=== PATIENT | male | born 1975 | race Caucasian/White ===

== ENCOUNTER 2017-12-05 20:01 | Emergency (ER) | payer MEDICAID ==
[2017-12-05] MEDS ORDERED: SODIUM CHLORIDE 0.9% 1,000 ML IV STA (20:23)
[2017-12-05] MEDS ORDERED: METOCLOPRAMIDE 5 MG/ML 2 ML VIAL IVP STA (20:23)
[2017-12-05] MEDS ORDERED: diphenhydrAMINE 50 MG/ML 1 ML VIAL IVP STA (20:23)
--- NOTE | 2017-12-05 20:26 | ED ---
General Adult HPI - General Chief complaint: GI Bleed Stated complaint: vomiting/blood Time Seen by Provider: 12/05/17 20:13 Source: patient, RN notes reviewed Mode of arrival: ambulatory Limitations: no limitations - History of Present Illness Initial comments: Patient's a 42-year-old male who presents emergency room today with a chief of nausea vomiting over the last 3 days. Patient does admit that he's had cough congestion for the past 10 days. States that he saw his family doctor was diagnosed with pneumonia and started antibiotics of azithromycin. He states he' s also been given no medications of Zofran. He states been trying this for the last day for his nausea vomiting. Patient states that tonight approximately an hour and a half ago he had an episode of vomiting saw small amount of blood in it. He does admit that he's been retching pretty hard over the last few days. He states he doesn't feel nauseous but it seems that every hour or so he has an episode of vomiting. Patient denies any specific abdominal pain. He does admit that he still having a mild cough but seems to be improving. He denies any other complaints or symptoms currently. Patient denies any recent fever, chills, shortness of breath, chest pain, back pain, numbness or tingling, dysuria or hematuria, constipation or diarrhea, headaches or visual changes, or any other complaints. - Related Data Home Medications Medication Instructions Recorded Confirmed Azithromycin [Zithromax Z-pack] See Taper PO DAILY 12/05/17 12/05/17 Ondansetron [Zofran ODT] 4 mg PO Q8HR PRN 12/05/17 12/05/17 Previous Rx's Medication Instructions Recorded Metoclopramide HCl [Reglan] 10 mg PO Q6HR PRN #5 day 12/05/17 Allergies Allergy/AdvReac Type Severity Reaction Status Date / Time No Known Allergies Allergy Verified 12/05/17 21:03 Review of Systems ROS Statement: Those systems with pertinent positive or pertinent negative responses have been documented in the HPI. ROS Other: All systems not noted in ROS Statement are negative. Past Medical History Past Medical History: No Reported History History of Any Multi-Drug Resistant Organisms: None Reported Past Surgical History: Hernia Repair, Orthopedic Surgery Additional Past Surgical History / Comment(s): left knee, right shoulder Past Psychological History: No Psychological Hx Reported Smoking Status: Never smoker Past Alcohol Use History: Occasional Past Drug Use History: None Reported General Exam - General Exam Comments Initial Comments: General: The patient is awake and alert, in no distress, and does not appear acutely ill. Eye: Pupils are equal, round and reactive to light, extra-ocular movements are intact. No nystagmus. There is normal conjunctiva bilaterally. No signs of icterus. Ears, nose, mouth and throat: There are moist mucous membranes and no oral lesions. Neck: The neck is supple, there is no tenderness or JVD. Cardiovascular: There is a regular rate and rhythm. No murmur, rub or gallop is appreciated. Respiratory: Lungs are clear to auscultation, respirations are non-labored, breath sounds are equal. No wheezes, stridor, rales, or rhonchi. Gastrointestinal: Soft, non-distended, non-tender abdomen without masses or organomegaly noted. There is no rebound or guarding present. No CVA tenderness. Bowel sounds are unremarkable. Musculoskeletal: Normal ROM, no tenderness. Strength 5/5. Sensation intact. Pulses equal bilaterally 2+. Neurological: A&O x 3. CN II-XII intact, There are no obvious motor or sensory deficits. Coordination appears grossly intact. Speech is normal. Skin: Skin is warm and dry and no rashes or lesions are noted. Psychiatric: Cooperative, appropriate mood & affect, normal judgment. Limitations: no limitations Course Vital Signs 12/05/17 20:05 Temperature 99 F Pulse Rate 106 H Respiratory 20 Rate Blood Pressure 124/78 O2 Sat by Pulse 97 Oximetry Medical Decision Making - Medical Decision Making Patient reexamined at this time shows no signs of distress. Patient's chest x- rays negative. His labs been reviewed unremarkable. Patient given a bolus here in the emergency room and is feeling much better at this time after Reglan. Patient will be given Reglan to go home for his symptoms. Is advised to follow-up the family doctor return here to the emergency room symptoms increase worsen or for concerns. - Lab Data Result diagrams: 12/05/17 20:45 12/05/17 20:45 Lab Results 12/05/17 12/05/17 12/05/17 Range/Units 20:45 20:45 20:45 WBC 9.2 (3.8-10.6) k/uL RBC 5.62 (4.30-5.90) m/uL Hgb 16.9 (13.0-17.5) gm/dL Hct 50.2 (39.0-53.0) % MCV 89.3 (80.0-100.0) fL MCH 30.0 (25.0-35.0) pg MCHC 33.6 (31.0-37.0) g/dL RDW 12.3 (11.5-15.5) % Plt Count 270 (150-450) k/uL Neutrophils % 70 % Lymphocytes % 20 % Monocytes % 7 % Eosinophils % 2 % Basophils % 1 % Neutrophils # 6.4 (1.3-7.7) k/uL Lymphocytes # 1.8 (1.0-4.8) k/uL Monocytes # 0.6 (0-1.0) k/uL Eosinophils # 0.2 (0-0.7) k/uL Basophils # 0.1 (0-0.2) k/uL PT 10.8 (9.0-12.0) sec INR 1.1 (<1.2) APTT 20.4 L (22.0-30.0) sec Sodium 140 (137-145) mmol/L Potassium 4.5 (3.5-5.1) mmol/L Chloride 101 (98-107) mmol/L Carbon Dioxide 24 (22-30) mmol/L Anion Gap 15 mmol/L BUN 32 H (9-20) mg/dL Creatinine 1.03 (0.66-1.25) mg/dL Est GFR (MDRD) Af Amer >60 (>60 ml/min/1.73 sqM) Est GFR (MDRD) Non-Af >60 (>60 ml/min/1.73 sqM) Glucose 106 H (74-99) mg/dL Calcium 9.3 (8.4-10.2) mg/dL Total Bilirubin 0.7 (0.2-1.3) mg/dL AST 31 (17-59) U/L ALT 36 (21-72) U/L Alkaline Phosphatase 78 (38-126) U/L Total Protein 7.4 (6.3-8.2) g/dL Albumin 4.5 (3.5-5.0) g/dL Amylase 97 (30-110) U/L Lipase 96 (23-300) U/L Disposition Clinical Impression: Nausea & vomiting, URI (upper respiratory infection) Disposition: HOME SELF-CARE Condition: Good Instructions: Acute Nausea and Vomiting (ED) Additional Instructions: Please use medication as discussed. Please follow-up with family doctor in the next 2 days of symptoms have not improved. Please return to emergency room if the symptoms increase or worsen or for any other concerns. Prescriptions: Metoclopramide HCl [Reglan] 10 mg PO Q6HR PRN #5 day PRN Reason: Nausea Referrals: Henry Desir DO [Primary Care Provider] - 1-2 days Time of Disposition: 21:42
[2017-12-05 21:04] LABS: Basophils # (A) 0.1 k/uL (0-0.2); Basophils % (A) 1 %; Eosinophils # (A) 0.2 k/uL (0-0.7); Eosinophils % (A) 2 %; HCT 50.2 % (39.0-53.0); HGB 16.9 gm/dL (13.0-17.5); Lymphocytes # (A) 1.8 k/uL (1.0-4.8); Lymphocytes % (A) 20 %; MCHC 33.6 g/dL (31.0-37.0); MCV 89.3 fL (80.0-100.0); Mean Platelet Volume 6.9; Monocytes # (A) 0.6 k/uL (0-1.0); Monocytes % (A) 7 %; Neutrophils # (A) 6.4 k/uL (1.3-7.7); Neutrophils % (A) 70 %; Platelet Count 270 k/uL (150-450); RBC 5.62 m/uL (4.30-5.90); RDW 12.3 % (11.5-15.5); WBC 9.2 k/uL (3.8-10.6)
[2017-12-05 21:13] LABS: INR 1.1 (<1.2); Prothrombin Time 10.8 sec (9.0-12.0)
[2017-12-05 21:14] LABS: ALT 36 U/L (21-72); AST 31 U/L (17-59); Albumin 4.5 g/dL (3.5-5.0); Alkaline Phosphatase 78 U/L (38-126); Amylase 97 U/L (30-110); Anion Gap 15 mmol/L; Blood Urea Nitrogen 32 mg/dL (9-20); Calcium 9.3 mg/dL (8.4-10.2); Carbon Dioxide 24 mmol/L (22-30); Chloride 101 mmol/L (98-107); Glucose 106 mg/dL (74-99); Lipase 96 U/L (23-300); Potassium 4.5 mmol/L (3.5-5.1); Sodium 140 mmol/L (137-145); Total Bilirubin 0.7 mg/dL (0.2-1.3); Total Protein 7.4 g/dL (6.3-8.2)
[2017-12-05 21:26] LABS: Partial Thromboplastin Time 20.4 sec (22.0-30.0)
--- NOTE | 2017-12-05 21:32 | XR ---
EXAMINATION: XR chest 2V DATE AND TIME: 12/05/2017 9:26 PM ORDERING PROVIDER: Elmer Mclain CLINICAL INDICATION: cough TECHNIQUE: PA and lateral COMPARISON: None. DESCRIPTION: The lungs are clear. The pleural spaces are negative. The cardiac silhouette is not enlarged. The mediastinal and pleural silhouettes are unremarkable. The skeletal structures are intact without focal findings. The soft tissues are unremarkable. IMPRESSION: NO ACUTE PROCESS.
[2017-12-05 22:14] VITALS: BP 134/86; PULSE 79; RESP 18; TEMP 98.1
[2017-12-05] MEDS ORDERED: ONDANSETRON 4 MG/2 ML VIAL IM STA (22:25)
== END 2017-12-05 23:02 | disposition home or self-care (01) ==
LOC: EC 20:01
DX: R11.2 Nausea with vomiting, unspecified (principal); R06.9 Unspecified abnormalities of breathing
CPT/HCPCS: 36415; 80053; 82150; 83690; 85025; 85610; 85730; 71046; 99284; 96374; 96375; 96361; J1200; J2765; J2405

== ENCOUNTER 2017-12-09 21:13 | Inpatient (IN) | payer MEDICAID ==
[2017-12-09] MEDS ORDERED: SODIUM CHLORIDE 0.9% 1,000 ML IV STA (21:33)
[2017-12-09] MEDS ORDERED: ONDANSETRON 4 MG/2 ML VIAL IVP STA (21:33)
--- NOTE | 2017-12-09 21:37 | ED ---
General Adult HPI - General Chief complaint: Abdominal Pain Stated complaint: abdominal pain/vomiting-revisit Time Seen by Provider: 12/09/17 21:20 Source: patient, RN notes reviewed, old records reviewed Mode of arrival: ambulatory Limitations: no limitations - History of Present Illness Initial comments: 42-year-old male with no significant past medical history presents for evaluation of epigastric abdominal pain and nausea and vomiting. Patient's symptoms began on Sunday, he had burning sensation in his stomach, followed by vomiting. He has been vomiting for the past 6 days. He did have an episode of blood-tinged vomit prior to ER evaluation on Sunday. Chest x-ray and laboratory studies were unremarkable at that time. Patient did have some URI symptoms including some nasal congestion and cough. He was given Rocephin and azithromycin by his primary care physician. Symptoms have failed to improve. He has no known sick contacts. Vomiting has been persistent now for 6 days. Denies central chest pain. Denies diarrhea. Patient did have fever and chills earlier in the week. - Related Data Home Medications Medication Instructions Recorded Confirmed Azithromycin [Zithromax Z-pack] 0 mg PO DIRECTED 12/09/17 12/09/17 Cetirizine HCl [Zyrtec] 10 mg PO DAILY 12/09/17 12/09/17 Famotidine [Pepcid] 20 mg PO BID 12/09/17 12/09/17 Metoclopramide [Reglan] 10 mg PO Q6H PRN 12/09/17 12/09/17 Allergies Allergy/AdvReac Type Severity Reaction Status Date / Time No Known Allergies Allergy Verified 12/09/17 21:41 Review of Systems ROS Statement: Those systems with pertinent positive or pertinent negative responses have been documented in the HPI. ROS Other: All systems not noted in ROS Statement are negative. Past Medical History Past Medical History: No Reported History History of Any Multi-Drug Resistant Organisms: None Reported Past Surgical History: Hernia Repair, Orthopedic Surgery Additional Past Surgical History / Comment(s): left knee, right shoulder Past Psychological History: No Psychological Hx Reported Smoking Status: Never smoker Past Alcohol Use History: Occasional Past Drug Use History: None Reported General Exam Limitations: no limitations General appearance: alert, in no apparent distress Head exam: Present: atraumatic, normocephalic Eye exam: Present: normal appearance, PERRL ENT exam: Present: normal exam Neck exam: Present: normal inspection. Absent: tenderness, meningismus Respiratory exam: Present: normal lung sounds bilaterally, other ( Bronchospastic cough). Absent: respiratory distress Cardiovascular Exam: Present: regular rate, normal rhythm GI/Abdominal exam: Present: soft, tenderness (Epigastric tenderness to palpation ). Absent: distended, guarding, rebound Extremities exam: Present: normal inspection, normal capillary refill. Absent: pedal edema Back exam: Present: normal inspection. Absent: full ROM Neurological exam: Present: alert, oriented X3, CN II-XII intact. Absent: motor sensory deficit Psychiatric exam: Present: normal affect, normal mood Skin exam: Present: warm, dry, intact. Absent: cyanosis, diaphoretic Course Vital Signs 12/09/17 12/09/17 12/09/17 21:21 22:01 22:27 Temperature 98.6 F Pulse Rate 98 80 Respiratory 20 18 18 Rate Blood Pressure 134/81 126/79 O2 Sat by Pulse 95 100 Oximetry 12/09/17 23:10 Temperature Pulse Rate 84 Respiratory 17 Rate Blood Pressure 127/80 O2 Sat by Pulse 97 Oximetry Medical Decision Making - Medical Decision Making 42-year-old male presenting with nausea and vomiting. This is patient's second ER visit for same complaint. His symptoms have been ongoing for 6 days. Patient does have some mild epigastric tenderness. He appears dehydrated on physical exam. Laboratory studies are obtained, white blood cell count 13.8 which is elevated, hemoglobin 17.8 which is likely secondary to hemoconcentration. Sodium is 129, creatinine 1.1, lactic acid normal 0.9 albumin 2.8 from previous of 4.5 3 days ago. X-ray is obtained, negative for bowel obstruction or intraperitoneal free air. Chest x-ray shows no focal pneumonia. Ultrasound is obtained, shows no gallstones, common bile duct is 0.4 cm, gallbladder wall 2 mm. This is normal ultrasound. On reevaluation, patient still having persistent nausea. He has been unable to eat anything significant in the past 6 days. He will be admitted for IV hydration, left shoulder replacement, and GI evaluation for persistent nausea and vomiting. - Lab Data Result diagrams: 12/09/17 21:40 12/09/17 21:40 Lab Results 01/14/18 01/14/18 01/14/18 Range/Units 21:40 21:40 21:40 WBC 13.8 H (3.8-10.6) k/uL RBC 6.14 H (4.30-5.90) m/uL Hgb 17.8 H (13.0-17.5) gm/dL Hct 55.8 H (39.0-53.0) % MCV 90.8 (80.0-100.0) fL MCH 29.1 (25.0-35.0) pg MCHC 32.0 (31.0-37.0) g/dL RDW 14.4 (11.5-15.5) % Plt Count 285 (150-450) k/uL Neutrophils % 60 % Lymphocytes % 25 % Monocytes % 8 % Eosinophils % 4 % Basophils % 1 % Neutrophils # 8.3 H (1.3-7.7) k/uL Lymphocytes # 3.4 (1.0-4.8) k/uL Monocytes # 1.1 H (0-1.0) k/uL Eosinophils # 0.6 (0-0.7) k/uL Basophils # 0.2 (0-0.2) k/uL Sodium 129 L (137-145) mmol/L Potassium 3.7 (3.5-5.1) mmol/L Chloride 96 L (98-107) mmol/L Carbon Dioxide 26 (22-30) mmol/L Anion Gap 7 mmol/L BUN 25 H (9-20) mg/dL Creatinine 1.10 (0.66-1.25) mg/dL Est GFR (MDRD) Af Amer >60 (>60 ml/min/1.73 sqM) Est GFR (MDRD) Non-Af >60 (>60 ml/min/1.73 sqM) Glucose 114 H (74-99) mg/dL Plasma Lactic Acid Daniel 0.9 (0.7-2.0) mmol/L Calcium 8.3 L (8.4-10.2) mg/dL Total Bilirubin 0.7 (0.2-1.3) mg/dL AST 22 (17-59) U/L ALT 35 (21-72) U/L Alkaline Phosphatase 37 L (38-126) U/L Troponin I (0.000-0.034) ng/mL Total Protein 4.8 L (6.3-8.2) g/dL Albumin 2.8 L (3.5-5.0) g/dL Amylase 56 (30-110) U/L Lipase 223 (23-300) U/L Influenza Type A RNA (Not Detectd) Influenza Type B (PCR) (Not Detectd) 12/09/17 12/09/17 Range/Units 21:40 22:10 WBC (3.8-10.6) k/uL RBC (4.30-5.90) m/uL Hgb (13.0-17.5) gm/dL Hct (39.0-53.0) % MCV (80.0-100.0) fL MCH (25.0-35.0) pg MCHC (31.0-37.0) g/dL RDW (11.5-15.5) % Plt Count (150-450) k/uL Neutrophils % % Lymphocytes % % Monocytes % % Eosinophils % % Basophils % % Neutrophils # (1.3-7.7) k/uL Lymphocytes # (1.0-4.8) k/uL Monocytes # (0-1.0) k/uL Eosinophils # (0-0.7) k/uL Basophils # (0-0.2) k/uL Sodium (137-145) mmol/L Potassium (3.5-5.1) mmol/L Chloride (98-107) mmol/L Carbon Dioxide (22-30) mmol/L Anion Gap mmol/L BUN (9-20) mg/dL Creatinine (0.66-1.25) mg/dL Est GFR (MDRD) Af Amer (>60 ml/min/1.73 sqM) Est GFR (MDRD) Non-Af (>60 ml/min/1.73 sqM) Glucose (74-99) mg/dL Plasma Lactic Acid Daniel (0.7-2.0) mmol/L Calcium (8.4-10.2) mg/dL Total Bilirubin (0.2-1.3) mg/dL AST (17-59) U/L ALT (21-72) U/L Alkaline Phosphatase (38-126) U/L Troponin I <0.012 (0.000-0.034) ng/mL Total Protein (6.3-8.2) g/dL Albumin (3.5-5.0) g/dL Amylase (30-110) U/L Lipase (23-300) U/L Influenza Type A RNA Not Detected (Not Detectd) Influenza Type B (PCR) Not Detected (Not Detectd) Disposition Clinical Impression: Intractable nausea and vomiting, Hyponatremia Disposition: ADMITTED IP TO THIS [facility] Condition: Stable Referrals: Henry Desir DO [Primary Care Provider] - 1-2 days Decision to Admit Reason: Admit from EC Decision Date: 12/09/17 Decision Time: 23:16
[2017-12-09 21:52] LABS: Basophils # (A) 0.2 k/uL (0-0.2); Basophils % (A) 1 %; Eosinophils # (A) 0.6 k/uL (0-0.7); Eosinophils % (A) 4 %; HGB 17.8 gm/dL (13.0-17.5); Lymphocytes # (A) 3.4 k/uL (1.0-4.8); Lymphocytes % (A) 25 %; MCH 29.1 pg (25.0-35.0); MCV 90.8 fL (80.0-100.0); Mean Platelet Volume 7.1; Monocytes # (A) 1.1 k/uL (0-1.0); Monocytes % (A) 8 %; Neutrophils # (A) 8.3 k/uL (1.3-7.7); Neutrophils % (A) 60 %; Platelet Count 285 k/uL (150-450); RBC 6.14 m/uL (4.30-5.90); RDW 14.4 % (11.5-15.5); WBC 13.8 k/uL (3.8-10.6)
[2017-12-09 21:55] LABS: HCT 55.8 % (39.0-53.0)
[2017-12-09 22:04] LABS: ALT 35 U/L (21-72); AST 22 U/L (17-59); Albumin 2.8 g/dL (3.5-5.0); Alkaline Phosphatase 37 U/L (38-126); Amylase 56 U/L (30-110); Anion Gap 7 mmol/L; Blood Urea Nitrogen 25 mg/dL (9-20); Calcium 8.3 mg/dL (8.4-10.2); Carbon Dioxide 26 mmol/L (22-30); Chloride 96 mmol/L (98-107); Glucose 114 mg/dL (74-99); Lipase 223 U/L (23-300); Potassium 3.7 mmol/L (3.5-5.1); Sodium 129 mmol/L (137-145); Total Bilirubin 0.7 mg/dL (0.2-1.3); Total Protein 4.8 g/dL (6.3-8.2)
--- NOTE | 2017-12-09 22:22 | US ---
EXAMINATION TYPE: US gallbladder DATE OF EXAM: 12/09/2017 COMPARISON: NONE CLINICAL HISTORY: Pain. N/V and abdomen pain x 1 week EXAM MEASUREMENTS: Liver Length: 15.3 cm Gallbladder Wall: 0.2 cm CBD: 0.4 cm Right Kidney: 11.9 x 5.2 x 5.4 cm Pancreas: obscured by overlying midline bowel gas Liver: wnl Gallbladder: wnl Evidence for sonographic Rome's sign: yes CBD: visualized portions wnl, limited by overlying bowel gas Right Kidney: wnl IMPRESSION: No gallstones or dilated ducts. No evidence of right renal obstruction.
--- NOTE | 2017-12-09 22:23 | XR ---
EXAMINATION TYPE: XR KUB DATE OF EXAM: 12/09/2017 COMPARISON: NONE HISTORY: Epigastric pain TECHNIQUE: 2 views FINDINGS: There is no sign of intestinal obstruction or pneumoperitoneum. Fecal pattern is normal. Nan ng bases are clear. There are no pathologic calcifications over the kidneys. IMPRESSION: Nonacute abdomen.
--- NOTE | 2017-12-09 22:31 | XR ---
EXAMINATION TYPE: XR chest 2V DATE OF EXAM: 12/09/2017 COMPARISON: 12/05/2017 HISTORY: Epigastric pain TECHNIQUE: Frontal and lateral views of the chest are obtained. FINDINGS: Heart and mediastinum are normal. Lungs are clear. Diaphragm is normal. There are chest le ads. Bony thorax is intact. IMPRESSION: Normal chest. No change.
[2017-12-09] MEDS ORDERED: SODIUM CHLORIDE 0.9% 1,000 ML IV ONE (23:03)
[2017-12-09] MEDS ORDERED: ONDANSETRON 4 MG/2 ML VIAL IVP PRN (23:10)
[2017-12-09] MEDS ORDERED: NALOXONE 0.4 MG/ML 1 ML VIAL IV PRN (23:10)
[2017-12-09] MEDS ORDERED: PANTOPRAZOLE 40 MG/10 ML VIAL IVP STA (23:13)
[2017-12-09] MEDS ORDERED: D5-0.45% NACL WITH KCL 20MEQ/L 1,000 ML IV SCH (23:15)
[2017-12-10 00:10] VITALS: BMI 32.5
[2017-12-10] MEDS: METOCLOPRAMIDE 5 MG/ML 2 ML VIAL IVP SCH ×5 (00:28→23:40)
[2017-12-10] MEDS: D5-0.9% NACL WITH KCL 20 MEQ/L 1,000 ML IV SCH ×3 (00:28→21:19)
[2017-12-10 07:38] LABS: Basophils # (A) 0.1 k/uL (0-0.2); Basophils % (A) 1 %; Eosinophils # (A) 0.7 k/uL (0-0.7); Eosinophils % (A) 6 %; HCT 45.9 % (39.0-53.0); HGB 15.1 gm/dL (13.0-17.5); Lymphocytes % (A) 27 %; MCH 29.5 pg (25.0-35.0); MCHC 32.9 g/dL (31.0-37.0); MCV 89.7 fL (80.0-100.0); Mean Platelet Volume 6.6; Monocytes # (A) 1.1 k/uL (0-1.0); Monocytes % (A) 10 %; Neutrophils # (A) 6.1 k/uL (1.3-7.7); Neutrophils % (A) 55 %; Platelet Count 244 k/uL (150-450); RBC 5.11 m/uL (4.30-5.90); RDW 12.6 % (11.5-15.5); WBC 11.2 k/uL (3.8-10.6)
[2017-12-10 08:05] LABS: ALT 31 U/L (21-72); AST 17 U/L (17-59); Alkaline Phosphatase 26 U/L (38-126); Amylase 45 U/L (30-110); Anion Gap 3 mmol/L; Blood Urea Nitrogen 21 mg/dL (9-20); Calcium 7.5 mg/dL (8.4-10.2); Carbon Dioxide 29 mmol/L (22-30); Chloride 100 mmol/L (98-107); Glucose 113 mg/dL (74-99); Lipase 260 U/L (23-300); Potassium 3.8 mmol/L (3.5-5.1); Sodium 132 mmol/L (137-145); Total Bilirubin 0.5 mg/dL (0.2-1.3); Total Protein 3.7 g/dL (6.3-8.2)
[2017-12-10] MEDS ORDERED: PANTOPRAZOLE 40 MG/10 ML VIAL IV SCH (09:00)
--- NOTE | 2017-12-10 11:19 | P.HPIM ---
History of Present Illness H&P Date: 12/10/17 Chief Complaint: Vomiting 42-year-old male who presented to the emergency room on 12/09/2017 for abdominal pain and persistent vomiting. The patient states the symptoms have been going on for approximately one week. He was seen by his primary care physician recently for complaints of upper respiratory symptoms and was given azithromycin and Rocephin. He states he has been unable to eat for approximately one week and feels like his "stomach is burning". He states he has been throwing up 8-10 times a day. He denies any diarrhea. In the emergency room, a KUB x-ray was completed which was negative for an acute abdomen. Chest x-ray was unremarkable. Ultrasound of the gallbladder was completed which was negative for gallstones or dilated ducts. Negative for evidence of right renal obstruction. Laboratory studies revealed white count of 13.8, hemoglobin 17.8, platelet count 285, sodium 129, BUN 25, creatinine 1.1 , lactic acid 0.9, calcium 8.3, AST 22, ALC 35, alkaline phosphatase 37, troponin negative 1, amylase 56, and lipase 223. Testing for influenza A and B was negative. He was admitted to the hospital under the care of Dr. Desir. Consultations were placed to gastroenterology for further evaluation. The patient was seen and examined at the bedside on rounds with Dr. Desir. The patient states he is feeling slightly better this morning. He still has an unable to eat this morning, but his breakfast tray has arrived and he states he will attempt to take in some clear liquids. He states he still feels like his abdomen is burning. He is still feeling nauseous with episodes of vomiting, although he states it is improving. He denies chest pain or pressure. Denies shortness of breath. Denies diarrhea. Voiding without difficulty. He is afebrile with a last temperature reading of 97.9. His blood pressure is stable at 108/67. He is on room air with an oxygen saturation greater than 92%. Review of Systems GENERAL: Positive for generalized malaise. Patient denies fever. Denies chills. EYES: Denies blurred vision. Denies vision changes. Denies eye pain. EARS, NOSE, MOUTH, & THROAT: Denies headache. Denies sore throat. Denies ear pain. RESPIRATORY: Denies cough. Denies shortness of breath. Denies sputum production. Denies hemoptysis. CARDIOVASCULAR: Denies chest pain or pressure. Denies palpitations. Denies arrhythmias. GASTROINTESTINAL: Nausea for nausea and vomiting 1 week. Positive for abdominal pain characterized as "burning". Denies diarrhea. Denies constipation. Denies blood in the stool. GENITOURINARY: Denies urinary frequency. Denies burning. Denies dysuria. Denies cloudy urine. Denies blood in the urine. MUSCULOSKELETAL: Denies myalgias. Denies joint swelling. Denies decreased range of motion beyond patients baseline. INTEGUMENTARY: Denies pruitis. Denies rash. PSYCHIATRIC: Denies suicidal or homicial ideations. ENDOCRINE: Denies weight change. Denies polydipsia. Denies polyuria. HEMATOLOGIC: Denies bleeding disorders. Past Medical History Past Medical History: No Reported History History of Any Multi-Drug Resistant Organisms: None Reported Past Surgical History: Hernia Repair, Orthopedic Surgery Additional Past Surgical History / Comment(s): left knee, right shoulder Past Anesthesia/Blood Transfusion Reactions: No Reported Reaction Past Psychological History: No Psychological Hx Reported Smoking Status: Never smoker Past Alcohol Use History: Occasional Past Drug Use History: None Reported Medications and Allergies Home Medications Medication Instructions Recorded Confirmed Type Azithromycin [Zithromax Z-pack] 0 mg PO DIRECTED 12/09/17 12/09/17 History Cetirizine HCl [Zyrtec] 10 mg PO DAILY 12/09/17 12/09/17 History Famotidine [Pepcid] 20 mg PO BID 12/09/17 12/09/17 History Metoclopramide [Reglan] 10 mg PO Q6H PRN 12/09/17 12/09/17 History Allergies Allergy/AdvReac Type Severity Reaction Status Date / Time No Known Allergies Allergy Verified 12/09/17 21:41 Physical Exam Vitals: Vital Signs Temp Pulse Pulse Resp BP BP Pulse Ox 12/10/17 07:00 97.9 F 69 16 108/67 95 12/09/17 23:57 97.8 F 93 16 115/68 98 12/09/17 23:34 98.2 F 82 18 118/84 99 12/09/17 23:10 84 17 127/80 97 12/09/17 22:27 80 18 126/79 100 12/09/17 22:01 18 12/09/17 21:21 98.6 F 98 20 134/81 95 Intake and Output 12/09/17 12/10/17 12/10/17 22:59 06:59 14:59 Other: Voiding Method Toilet Weight 117.934 kg 117.934 kg GENERAL: This is a 42-year-old male who appears to be feeling unwell at the time of examination. Pleasant and cooperative. HEENT: Head is atraumatic, normocephalic. Pupils are equal, round, and reactive to light. Sclerae anicteric. Conjunctivae are clear. Mucus membranes of the mouth are dry. Neck is supple. RESPIRATORY: Clear to ausculation. No wheezes, rales, or rhonchi. No use of accessory muscles. Patient maintaining oxygen saturation greater than 92%. No chest wall tenderness is noted on palpation or with deep breathing. CARDIOVASCULAR: Regular rate and rhythm. S1 and S2 noted. No systolic or diastolic murmur auscultated. No JVD noted. No S3 or S4 noted. GASTROINTESTINAL: Obese. No distention noted. Abdomen soft and round. bowel sounds auscultated x 4 quadrants. Generalized pain and tenderness noted upon palpation of abdomen. INTEGUMENTARY: No cyanosis. No jaundice. No rashes noted. No cellulitis noted. EXTREMITIES: 2+ peripheral pulses. No evidence of peripheral edema. No calf tenderness noted. NEUROLOGIC: Cranial nerves II-XII intact. PSYCHIATRIC: Awake, alert, and oriented X 3. Appropriate affect. Intact judgement and insight. Results CBC & Chem 7: 12/10/17 07:16 12/10/17 07:16 Labs: Abnormal Lab Results - Last 24 Hours (Table) 12/09/17 12/09/17 12/10/17 Range/Units 21:40 21:40 07:16 WBC 13.8 H 11.2 H (3.8-10.6) k/uL RBC 6.14 H (4.30-5.90) m/uL Hgb 17.8 H (13.0-17.5) gm/dL Hct 55.8 H (39.0-53.0) % Neutrophils # 8.3 H (1.3-7.7) k/uL Monocytes # 1.1 H 1.1 H (0-1.0) k/uL Sodium 129 L (137-145) mmol/L Chloride 96 L (98-107) mmol/L BUN 25 H (9-20) mg/dL Glucose 114 H (74-99) mg/dL Calcium 8.3 L (8.4-10.2) mg/dL Alkaline Phosphatase 37 L (38-126) U/L Total Protein 4.8 L (6.3-8.2) g/dL Albumin 2.8 L (3.5-5.0) g/dL 12/10/17 Range/Units 07:16 WBC (3.8-10.6) k/uL RBC (4.30-5.90) m/uL Hgb (13.0-17.5) gm/dL Hct (39.0-53.0) % Neutrophils # (1.3-7.7) k/uL Monocytes # (0-1.0) k/uL Sodium 132 L (137-145) mmol/L Chloride (98-107) mmol/L BUN 21 H (9-20) mg/dL Glucose 113 H (74-99) mg/dL Calcium 7.5 L (8.4-10.2) mg/dL Alkaline Phosphatase 26 L (38-126) U/L Total Protein 3.7 L (6.3-8.2) g/dL Albumin 2.0 L (3.5-5.0) g/dL Thrombosis Risk Factor Assmnt - Choose All That Apply Each Factor Represents 1 point: Age 41-60 years Thrombosis Risk Factor Assessment Total Risk Factor Score: 1 Thrombosis Risk Factor Assessment Level: Low Risk Assessment and Plan Plan: ASSESSMENT: Intractable nausea and vomiting 1 week, imaging studies negative, suspect viral etiology Dehydration, secondary to persistent vomiting and decreased oral intake Hyponatremia, secondary to dehydration and persistent vomiting, improving Generalized abdominal pain, secondary to vomiting and likely viral infection Epigastric pain, likely related to vomiting Recent upper respiratory infection, treated outpatient with azithromycin and Rocephin Leukocytosis, present on admission, may be secondary to recent upper respiratory infection or suspected viral enteritis, no signs of sepsis, Obesity: BMI 32.5 PLAN: -GI on consult. Await further recommendations and input -Continue D5.9 @ 100cc/hr -Continue clear liquid diet. may advance if patients oral intake increases -Continue zofran and reglan -Home meds as appropriate -Monitor labs -GI prophylaxis: Protonix 40mg IV daily -DVT prophylaxis: [place] to bilateral lower extremities -Monitor vital signs and address as appropriate -Discharge planning: Patient to return home. No home care needs at this time. -Further recommendations pending patient's course Nurse practitioner note has been reviewed by physician. Signing provider agrees with the documented findings, assessment, and plan of care.
--- NOTE | 2017-12-10 18:43 | CONS ---
CONSULTATION DATE OF CONSULTATION: December 10, 2017. REQUESTING PHYSICIAN: Dr. Henry Desir. REASON FOR CONSULTATION: Epigastric pain, nausea, vomiting of 1 week duration. HISTORY OF PRESENT ILLNESS: The patient is a 42-year-old pleasant white male admitted to the hospital with acute onset of severe epigastric pain associated with heartburn, nausea, vomiting for last 1 week duration. He was diagnosed with upper respiratory infection, was treated with azithromycin back about a week ago. Subsequently on Sunday, started having some epigastric pain, nausea, vomiting. He had to go home from work and his symptoms continued to persist. He tried Pepcid over the counter with no relief. He came to the emergency room on Sunday and was sent home with Pepcid and antiemetics, but yesterday, symptoms continued to progressively get worse and hence came to the emergency room and subsequently admitted to the hospital for further evaluation. Presently on a clear liquid diet, tolerating well. Still has heartburn and epigastric discomfort. No rectal bleeding or melena. Never had these symptoms in the past. No recent NSAID use. PAST MEDICAL HISTORY: Unremarkable. MEDICATIONS: At home: Pepcid, Zyrtec, Z-Medardo, Reglan. ALLERGIES: No known drug allergies. PAST SURGICAL HISTORY: Hernia repair. SOCIAL HISTORY: No smoking, alcohol use. FAMILY HISTORY: Unremarkable. REVIEW OF SYSTEMS: Cardiopulmonary: No chest pain. No shortness of breath. Genitourinary: No dysuria or hematuria. Musculoskeletal: Unremarkable. Skin: Unremarkable. Endocrine: Unremarkable. Psychiatric: Unremarkable. Neurological: Unremarkable. ENT vision unremarkable. Constitutional: No recent weight loss. No fever, chills, night sweats. PHYSICAL EXAMINATION: Appears comfortable in no apparent distress. VITAL SIGNS: Stable. Blood pressure is 120/82, pulse 86 per minute and afebrile. HEENT examination unremarkable. Conjunctivae pink. Sclerae anicteric. Oral cavity no lesions. Neck: No jugular venous distention or lymph node enlargement. Chest was clear to auscultation. HEART: Regular rate and rhythm. ABDOMEN: Soft. Bowel sounds are positive. No organomegaly. Extremities: No pedal edema. Skin no rashes. NEUROLOGIC: Alert and oriented x3. No focal deficits. LAB: Done at the time of admission to the hospital: WBC 13.8, hemoglobin 17.5, platelets are normal. Basic metabolic panel is within normal limits. Amylase and lipase are normal. ALT, AST, T bilirubin, alkaline phosphatase, normal. Ultrasound of the abdomen was also normal. IMPRESSION: This is a patient who presents to the hospital with acute onset of severe epigastric pain with nausea, vomiting, heartburn for the last 1 week duration. He took some Aleve for upper respiratory infections about a week ago. He was treated with Zithromax for the same. No prior history of peptic ulcer disease. At this time possibility of gastroesophageal reflux disease/peptic ulcer disease needs to be considered. Ultrasound of the abdomen was unremarkable. RECOMMENDATIONS: 1. Continue with IV Protonix. 2. Clear liquid diet. 3. We will proceed with an upper endoscopy tomorrow. 4. I discussed with the patient the risks, benefits and complications and he is agreeable to it. Thank you for this consultation. BHASKARL / SHEILAN: [id number] /
[2017-12-11] MEDS: D5-0.9% NACL WITH KCL 20 MEQ/L 1,000 ML IV SCH ×2 (05:46→20:26)
[2017-12-11] MEDS: METOCLOPRAMIDE 5 MG/ML 2 ML VIAL IVP SCH ×4 (05:46→23:40)
[2017-12-11] MEDS ORDERED: PROPOFOL 10 MG/ML 20 ML VIAL IV ONE (07:03)
[2017-12-11] MEDS ORDERED: LACTATED RINGERS 1,000 ML IV ONE (07:13)
[2017-12-11 07:18] LABS: Basophils # (A) 0.1 k/uL (0-0.2); Basophils % (A) 1 %; Eosinophils # (A) 0.7 k/uL (0-0.7); Eosinophils % (A) 7 %; HCT 46.8 % (39.0-53.0); HGB 15.3 gm/dL (13.0-17.5); Lymphocytes # (A) 3.4 k/uL (1.0-4.8); Lymphocytes % (A) 33 %; MCH 29.8 pg (25.0-35.0); MCHC 32.6 g/dL (31.0-37.0); MCV 91.4 fL (80.0-100.0); Mean Platelet Volume 7.1; Monocytes # (A) 0.8 k/uL (0-1.0); Monocytes % (A) 7 %; Neutrophils # (A) 5.3 k/uL (1.3-7.7); Neutrophils % (A) 50 %; Platelet Count 228 k/uL (150-450); RBC 5.12 m/uL (4.30-5.90); RDW 13.7 % (11.5-15.5); WBC 10.6 k/uL (3.8-10.6)
[2017-12-11 07:34] LABS: Anion Gap 5 mmol/L; Blood Urea Nitrogen 14 mg/dL (9-20); Calcium 7.8 mg/dL (8.4-10.2); Carbon Dioxide 29 mmol/L (22-30); Chloride 103 mmol/L (98-107); Glucose 93 mg/dL (74-99); Magnesium 2.1 mg/dL (1.6-2.3); Potassium 3.9 mmol/L (3.5-5.1); Sodium 137 mmol/L (137-145)
--- NOTE | 2017-12-11 07:34 | P.PCN ---
Date of Procedure: 12/11/17 Procedure(s) Performed: BRIEF HISTORY: Patient is a 42-year-old, pleasant, white male, admitted hospital with persistent epigastric pain, nausea vomiting and severe heartburn for the last 1 week duration. He continues to have persistent symptoms despite being on H2 blockers as well as PPIs on an outpatient basis. He is hence scheduled for an upper endoscopy to evaluate further. Head weight loss of 15 pounds in the last 1 week duration PROCEDURE PERFORMED: Esophagogastroduodenoscopy with biopsy. PREOPERATIVE DIAGNOSIS: Persistent epigastric pain, nausea vomiting and severe heartburn for 1 week duration. IV sedation per anesthesia. PROCEDURE: After informed consent was obtained, the patient was brought into the endoscopy unit. IV sedation was administered by Anesthesia under continuous monitoring. Initially the Olympus GIF-140 video endoscope was inserted into the mouth. Esophagus intubated without any difficulty. It was gradually advanced into the stomach and duodenum and carefully examined. The bulb and the second part of the duodenum appeared normal. The scope at this time was withdrawn to the stomach, adequately insufflated with air, and upon careful examination, mucosa of the antrum, body, cardia and the fundus has severe gastritis with the mucosal friability and edema and thickened mucosal folds especially in the body of the stomach. Multiple biopsies were done from the antrum and body of the stomach to evaluate for infiltrative disorders versus infectious etiology. The scope was then withdrawn into the esophagus. The GE junction was located at 39 cm from the incisors. The esophagus appeared normal. There were no erosions or ulcerations seen and the patient tolerated the procedure well. IMPRESSION: 1. Severe diffuse gastritis involving the body and antrum of the stomach with erythema, edema and significantly thickened mucosal folds especially in the body of the stomach status post multiple biopsies to rule out infectious etiology versus infiltrative disorders.. 2. Normal-appearing esophagus and duodenum. RECOMMENDATIONS: The findings of this examination were discussed with the patient as well as his family. At this time will increase the Protonix to 40 mg twice daily, add Carafate 1 g 4 times daily and start a full liquid diet today.
[2017-12-11] MEDS: PANTOPRAZOLE 40 MG/10 ML VIAL IVP SCH ×2 (07:59→20:42)
[2017-12-11] MEDS: SUCRALFATE 1 GM TAB PO SCH ×3 (12:23→20:42)
[2017-12-11] MEDS: LORATADINE 10 MG TAB PO SCH (12:23)
--- NOTE | 2017-12-11 13:12 | P.PN ---
Subjective Progress Note Date: 12/11/17 42-year-old male who presented to the emergency room on 12/09/2017 for abdominal pain and persistent vomiting. The patient states the symptoms have been going on for approximately one week. He was seen by his primary care physician recently for complaints of upper respiratory symptoms and was given azithromycin and Rocephin. He states he has been unable to eat for approximately one week and feels like his "stomach is burning". He states he has been throwing up 8-10 times a day. He denies any diarrhea. In the emergency room, a KUB x-ray was completed which was negative for an acute abdomen. Chest x-ray was unremarkable. Ultrasound of the gallbladder was completed which was negative for gallstones or dilated ducts. Negative for evidence of right renal obstruction. Laboratory studies revealed white count of 13.8, hemoglobin 17.8, platelet count 285, sodium 129, BUN 25, creatinine 1.1 , lactic acid 0.9, calcium 8.3, AST 22, ALC 35, alkaline phosphatase 37, troponin negative 1, amylase 56, and lipase 223. Testing for influenza A and B was negative. He was admitted to the hospital under the care of Dr. Desir. Consultations were placed to gastroenterology for further evaluation. 12/10/2017 The patient was seen and examined at the bedside on rounds with Dr. Desir. The patient states he is feeling slightly better this morning. He still has an unable to eat this morning, but his breakfast tray has arrived and he states he will attempt to take in some clear liquids. He states he still feels like his abdomen is burning. He is still feeling nauseous with episodes of vomiting, although he states it is improving. He denies chest pain or pressure. Denies shortness of breath. Denies diarrhea. Voiding without difficulty. He is afebrile with a last temperature reading of 97.9. His blood pressure is stable at 108/67. He is on room air with an oxygen saturation greater than 92%. 12/11/2017 The patient was seen and examined at the bedside this morning. He underwent EGD this morning with Dr. Benoit revealing severe diffuse gastritis involving the body and antrum of the stomach with erythema, edema, and significantly thickened mucosal folds. Biopsies were also taken at this time. The esophagus and duodenum appeared normal per GI. His protonix was increased to 40mg BID and carafate was added. He was started on a clear liquid diet. Sodium has improved to 137. WBC is down to 10.6. He is afebrile. Denies chest pain or pressure. Denies shortness of breath. Blood pressure is stable. Objective - Vital Signs Vital signs: Vital Signs Temp 98.5 F 12/11/17 07:12 Pulse 92 12/11/17 08:00 Resp 18 12/11/17 08:00 BP 130/73 12/11/17 07:12 Pulse Ox 97 12/11/17 07:12 Intake & Output 12/10/17 12/11/17 12/11/17 18:59 06:59 18:59 Intake Total 700 800 400 Balance 700 800 400 Intake: IV 400 Intake, IV Titration 700 800 Amount D5-0.9% NaCl with KCl 20 700 800 Meq/l 1,000 ml @ 100 mls/ hr IV .Q10H MARIA LUZ Rx#: [id number] Other: Voiding Method Toilet Toilet Toilet # Voids 1 - Exam GENERAL: This is a 42-year-old male who appears in no acute distress at the time of examination. Pleasant and cooperative. HEENT: Head is atraumatic, normocephalic. Pupils are equal, round, and reactive to light. Sclerae anicteric. Conjunctivae are clear. Mucus membranes of the mouth are dry. Neck is supple. RESPIRATORY: Clear to ausculation. No wheezes, rales, or rhonchi. No use of accessory muscles. Patient maintaining oxygen saturation greater than 92%. No chest wall tenderness is noted on palpation or with deep breathing. CARDIOVASCULAR: Regular rate and rhythm. S1 and S2 noted. No systolic or diastolic murmur auscultated. No JVD noted. No S3 or S4 noted. GASTROINTESTINAL: Obese. No distention noted. Abdomen soft and round. bowel sounds auscultated x 4 quadrants. Generalized pain and tenderness noted upon palpation of abdomen. INTEGUMENTARY: No cyanosis. No jaundice. No rashes noted. No cellulitis noted. EXTREMITIES: 2+ peripheral pulses. No evidence of peripheral edema. No calf tenderness noted. NEUROLOGIC: Cranial nerves II-XII intact. PSYCHIATRIC: Awake, alert, and oriented X 3. Appropriate affect. Intact judgement and insight. - Labs CBC & Chem 7: 12/11/17 06:33 12/11/17 06:33 Labs: Abnormal Lab Results - Last 24 Hours (Table) 12/11/17 Range/Units 06:33 Calcium 7.8 L (8.4-10.2) mg/dL Assessment and Plan Plan: ASSESSMENT: Intractable nausea and vomiting 1 week, imaging studies negative, suspect viral etiology, improving Epigastric pain secondary to severe gastritis, s/p EGD 12/11/2017 Dehydration, secondary to persistent vomiting and decreased oral intake, improving Hyponatremia, secondary to dehydration and persistent vomiting, improving Generalized abdominal pain, secondary to vomiting and likely viral infection, improving Recent upper respiratory infection, treated outpatient with azithromycin and Rocephin Leukocytosis, present on admission, may be secondary to recent upper respiratory infection or suspected viral enteritis, no signs of sepsis, Obesity: BMI 32.5 PLAN: -GI on consult. Appreciate recommendations and input -Continue full liquid diet. Advance as tolerated. -Home meds as appropriate -Monitor labs -GI prophylaxis: Protonix 40mg IV BID -DVT prophylaxis: [place] to bilateral lower extremities -Monitor vital signs and address as appropriate -Discharge planning: Patient to return home. No home care needs at this time. -Further recommendations pending patient's course -Anticipate discharge home tomorrow if patient remains stable Nurse practitioner note has been reviewed by physician. Signing provider agrees with the documented findings, assessment, and plan of care.
[2017-12-11 22:54] VITALS: TEMP 98.6
[2017-12-12] MEDS: D5-0.9% NACL WITH KCL 20 MEQ/L 1,000 ML IV SCH (01:49)
[2017-12-12] MEDS: METOCLOPRAMIDE 5 MG/ML 2 ML VIAL IVP SCH (05:50)
[2017-12-12 07:10] LABS: Basophils # (A) 0.1 k/uL (0-0.2); Basophils % (A) 1 %; Eosinophils # (A) 0.7 k/uL (0-0.7); Eosinophils % (A) 7 %; HCT 42.9 % (39.0-53.0); HGB 13.9 gm/dL (13.0-17.5); Lymphocytes # (A) 2.5 k/uL (1.0-4.8); Lymphocytes % (A) 25 %; MCH 29.3 pg (25.0-35.0); MCHC 32.3 g/dL (31.0-37.0); MCV 90.8 fL (80.0-100.0); Mean Platelet Volume 7.3; Monocytes # (A) 0.7 k/uL (0-1.0); Monocytes % (A) 7 %; Neutrophils # (A) 5.9 k/uL (1.3-7.7); Neutrophils % (A) 59 %; Platelet Count 214 k/uL (150-450); RBC 4.72 m/uL (4.30-5.90); RDW 13.5 % (11.5-15.5)
[2017-12-12 07:36] LABS: Anion Gap 2 mmol/L; Blood Urea Nitrogen 11 mg/dL (9-20); Calcium 7.3 mg/dL (8.4-10.2); Carbon Dioxide 29 mmol/L (22-30); Chloride 105 mmol/L (98-107); Glucose 108 mg/dL (74-99); Potassium 3.6 mmol/L (3.5-5.1); Sodium 136 mmol/L (137-145)
[2017-12-12 07:55] VITALS: BP 123/75; PULSE 75; RESP 16
[2017-12-12] MEDS: LORATADINE 10 MG TAB PO SCH (08:08)
[2017-12-12] MEDS: SUCRALFATE 1 GM TAB PO SCH (08:08)
[2017-12-12] MEDS: PANTOPRAZOLE 40 MG/10 ML VIAL IVP SCH (08:08)
--- NOTE | 2017-12-12 10:56 | P.DS ---
Providers Date of admission: 12/09/17 23:16 Expected date of discharge: 12/12/17 Attending physician: Henry Desir Consults: 12/09/17 23:11 Consult Physician Urgent Consulting Provider: Cheyenne Benoit Consult Reason/Comments: Intractable nausea vomiting, hyponatremia Do you want consulting provider notified?: Yes, Notify in am Primary care physician: Henry Desir [facility] Course: 42-year-old male who presented to the emergency room on 12/09/2017 for abdominal pain and persistent vomiting. The patient states the symptoms have been going on for approximately one week. He was seen by his primary care physician recently for complaints of upper respiratory symptoms and was given azithromycin and Rocephin. He states he has been unable to eat for approximately one week and feels like his "stomach is burning". He states he has been throwing up 8-10 times a day. He denies any diarrhea. In the emergency room, a KUB x-ray was completed which was negative for an acute abdomen. Chest x-ray was unremarkable. Ultrasound of the gallbladder was completed which was negative for gallstones or dilated ducts. Negative for evidence of right renal obstruction. Laboratory studies revealed white count of 13.8, hemoglobin 17.8, platelet count 285, sodium 129, BUN 25, creatinine 1.1 , lactic acid 0.9, calcium 8.3, AST 22, ALC 35, alkaline phosphatase 37, troponin negative 1, amylase 56, and lipase 223. Testing for influenza A and B was negative. He was admitted to the hospital under the care of Dr. Desir. Consultations were placed to gastroenterology for further evaluation. He underwent EGD this morning with Dr. Benoit revealing severe diffuse gastritis involving the body and antrum of the stomach with erythema, edema, and significantly thickened mucosal folds. Biopsies were also taken at this time. The esophagus and duodenum appeared normal per GI. He has been tolerating PO intake and his diet was advanced to a regular diet. No further episodes of nausea or vomiting. He was deemed stable for discharge per Dr. Desir. He is to follow up on an outpatient basis with Dr. Desir and Dr. Benoit. Prescriptions were sent to the patient's preferred pharmacy for Protonix 40 mg by mouth daily and Carafate 1 g before meals and at bedtime. Discharge diagnosis Intractable nausea and vomiting 1 week, imaging studies negative, suspect viral etiology, resolved at time of discharge Epigastric pain secondary to severe gastritis, s/p EGD 12/11/2017 Dehydration, secondary to persistent vomiting and decreased oral intake, resolved at time of discharge Hyponatremia, secondary to dehydration and persistent vomiting, resolved at time of discharge Generalized abdominal pain, secondary to vomiting and likely viral infection, resolved at time of discharge Recent upper respiratory infection, treated outpatient with azithromycin and Rocephin Leukocytosis, present on admission, may be secondary to recent upper respiratory infection or suspected viral enteritis, no signs of sepsis, resolved at time of discharge Obesity: BMI 32.5 Nurse practitioner note has been reviewed by physician. Signing provider agrees with the documented findings, assessment, and plan of care. Patient Condition at Discharge: Stable Plan - Discharge Summary Discharge Rx Participant: No New Discharge Prescriptions: New Pantoprazole [Protonix] 40 mg PO DAILY #30 tab Sucralfate [Carafate] 1 gm PO ACHS #120 tab Continue Cetirizine HCl [Zyrtec] 10 mg PO DAILY Discontinued Famotidine [Pepcid] 20 mg PO BID Azithromycin [Zithromax Z-pack] 0 mg PO DIRECTED Metoclopramide [Reglan] 10 mg PO Q6H PRN PRN Reason: Nausea Discharge Medication List Cetirizine HCl [Zyrtec] 10 mg PO DAILY 12/09/17 [History] Pantoprazole [Protonix] 40 mg PO DAILY #30 tab 12/12/17 [Rx] Sucralfate [Carafate] 1 gm PO ACHS #120 tab 12/12/17 [Rx] Follow up Appointment(s)/Referral(s): Henry Desir DO [Primary Care Provider] - 1 Week Cheyenne Benoit MD [STAFF PHYSICIAN] - 2 Weeks
--- NOTE | 2017-12-12 11:43 | P.PN ---
Subjective Progress Note Date: 12/12/17 Principal diagnosis: Status post EGD yesterday for evaluation of persistent epigastric pain nausea vomiting 1 week duration with findings of severe diffuse gastritis involving the body and antrum of the stomach status post multiple biopsies. Biopsies pending. Admission feels better today. No nausea vomiting. Afebrile. Tolerating diet. Denies hematemesis hematochezia melena. Objective - Vital Signs Vital signs: Vital Signs Temp 98.6 F 12/12/17 07:00 Pulse 75 12/12/17 08:00 Resp 16 12/12/17 08:00 BP 123/75 12/12/17 07:00 Pulse Ox 97 12/12/17 07:00 Intake & Output 12/11/17 12/12/17 12/12/17 18:59 06:59 18:59 Intake Total 1100 800 Balance 1100 800 Weight 117.934 kg Intake: IV 400 Intake, IV Titration 700 800 Amount D5-0.9% NaCl with KCl 20 700 800 Meq/l 1,000 ml @ 100 mls/ hr IV .Q10H MARIA LUZ Rx#: [id number] Other: Voiding Method Toilet Toilet Toilet # Voids 2 - Exam General appearance: The patient is alert, oriented, in no acute distress. HET: Head is normocephalic and atraumatic. Pupils are equal and reactive. Oropharynx is clear without lesions. Neck: Supple without lymphadenopathy. Trachea midline. Heart: S1 S2. Regular rate and rhythm. Lungs: No crackles or wheezes are heard. Abdomen: Soft, nontender, nondistended with bowel sounds. No peritoneal signs. No palpable organomegaly or masses. Extremities: Normal skin color and turgor. No cyanosis, rash, ulceration, clubbing, or edema. Radial and pedal pulses are 2/4 bilaterally. Neurological: No focal deficits. Strength and sensation are grossly intact. - Labs CBC & Chem 7: 12/12/17 06:57 12/12/17 06:57 Labs: Abnormal Lab Results - Last 24 Hours (Table) 12/12/17 Range/Units 06:57 Sodium 136 L (137-145) mmol/L Glucose 108 H (74-99) mg/dL Calcium 7.3 L (8.4-10.2) mg/dL Assessment and Plan (1) Epigastric abdominal pain Narrative/Plan: Severe gastritis involving the body and antrum of the stomach status post EGD with biopsies. Etiology unclear possible infectious possible viral possible infiltrative disorders. Current Visit: Yes Status: Acute Code(s): R10.13 - EPIGASTRIC PAIN SNOMED Code(s): 80505332 Plan: 1. Agreeable for discharge. Return to office December 17 for reevaluation and discussion of biopsy results. 2. Protonix 40 mg twice daily. Carafate 1 g 4 times daily. Diet as tolerated avoid spicy foods, alcohol, tobacco. Assessment and plan a care discussed with Dr. Benoit
== END 2017-12-12 13:06 | disposition home or self-care (01) | DRG 392 ==
LOC: EC 21:13 → 5MS5E 23:16
PROVIDERS: ADMIT Family Medicine; ATTEND Family Medicine
PROC: 0DB68ZX Excision of Stomach, Via Natural or Artificial Opening Endoscopic, Diagnostic (ICD-10-PCS; principal; 2017-12-11 07:30)
DX: A08.4 Viral intestinal infection, unspecified (principal); E87.1 Hypo-osmolality and hyponatremia; E66.9 Obesity, unspecified; E86.0 Dehydration; J06.9 Acute upper respiratory infection, unspecified; Z68.32 Body mass index [BMI] 32.0-32.9, adult
CPT/HCPCS: 36415; 43239; 71046; 74018; 76705; 80048; 80053; 82150; 83605; 83690; 83735; 84484; 85025; 87502; 88305; 88342; 96361; 96374; 99285